=== PATIENT | male | born 1990 | race Caucasian/White ===

== ENCOUNTER 2019-05-07 12:39 | Emergency (ER) | payer BC, SELFPAY ==
[2019-05-07 12:48] VITALS: BP 140/74; PULSE 68; RESP 16; TEMP 37.3; O2SAT 99
--- NOTE | 2019-05-07 13:01 | ED.SKABFB ---
HPI - Skin/Abscess/Foreign Bdy General Chief complaint: Skin/Abscess/Foreign Body Stated complaint: poison henrietta or sumac Time Seen by Provider: 05/07/19 13:01 Source: patient and RN notes reviewed Mode of arrival: ambulatory Limitations: no limitations History of Present Illness HPI narrative: 28-year-old male who presents to [facility] care with complaints of poison henrietta or poison oak rash to his neck, inner wrists, ears, upper chest, spot on abdomen, and on dorsal aspect of his right foot which started about 6 days ago which has been progressively spreading. 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 Patient states that he has had posion henrietta rash in past and rash is red with pustular lesions with some weeping of clear fluid noted. Patient denies any difficulty with his breathing or any problems with swallowing. MD complaint: rash Onset (ago): day(s) (6) Location: neck, chest, LUE, RUE and R foot Severity: moderate Severity scale (1-10): 5 Quality: other (itching) Pain Consistency: constant Relieving factors: none Exacerbating factors: movement Context: other (exposure to poison henrietta/poison oak working on pipeline) Associated symptoms: itching Treatments prior to arrival: other (hydrocortisone cream) Related Data Allergies Allergy/AdvReac Type Severity Reaction Status Date / Time No Known Allergies Allergy Verified 05/07/19 13:05 Review of Systems Review of Systems: Narrative: CONSTITUTIONAL: Denies fever, chills, or sweats. EYES: Denies visual changes, redness, or discharge. ENT: Denies rhinorrhea, congestion, sore throat, or otalgia. CARDIOVASCULAR: Denies chest pain, palpitations, or edema. RESPIRATORY: Denies cough or dyspnea. GASTROINTESTINAL: Denies abdominal pain, nausea, vomiting, or diarrhea. GENITOURINARY: Denies dysuria or hematuria. SKIN: positive rash or itching numerous body areas for 6 days MUSCULOSKELETAL: Denies back pain, joint pain, or myalgia. NEUROLOGIC: Denies headache, numbness, or weakness. PSYCHIATRIC: Denies anxiety or depression. All systems reviewed & are unremarkable except as noted in HPI and below PMFSH Past Medical History Medical History (Updated 05/07/19 @ 13:25 by Geeta L. Lalo, [employer]) Hx of reduction of nasal fracture Surgical History Surgical History (Updated 05/07/19 @ 13:25 by Geeta May NP) [place] teeth extracted Social History Social History (Updated 05/07/19 @ 13:26 by Geeta May NP) Smoking status: Never smoker Alcohol intake: current Living arrangements: with roommate(s) Additional occupation/education comments: working on [employer] Gender identity (if verbalized by the patient): Male Comments At time of signature, agree with nursing past medical, social and family history. There is no relevant family history pertinent to the presenting complaint Exam Narrative: Exam Narrative: GENERAL: Well-appearing, well-nourished, and in no acute distress. HEAD: Normocephalic, atraumatic. EYES: PERRLA and EOMI. ENT: Nares clear, no rhinorrhea or epistaxis. Mucous membranes moist. NECK: Supple.no lymphadenopathy CHEST: Clear to auscultation. No respiratory distress.SAO2 99%on room air HEART: Regular rate and rhythm. No murmur heard. Normal peripheral pulses. ABDOMEN: Soft, non tender, nondistended, normal active bowel sounds. EXTREMITIES: Normal range of motion. No edema. SKIN: Warm, dry, red irritated pustular rash with some clear weeping,noted bilateral neck, ears, upper chest, bilateral forearms dorsal aspect of right foot. Is itchy. NEURO: No focal deficits. Alert and oriented x3. Course Vital Signs Vital signs: Vital Signs Temperature 37.3 C 05/07/19 12:48 Pulse Rate 68 05/07/19 12:48 Respiratory Rate 16 05/07/19 12:48 Blood Pressure 140/74 05/07/19 12:48 Pulse Oximetry 99 05/07/19 12:48 Temperature 37.3 C 05/07/19 12:48 Pulse Rate 68 05/07/19 12:48 Respiratory Ra
[2019-05-07] MEDS: methylPREDNISolone ACETATE 40 MG/ML VIAL 80 MG IM (13:18)
== END 2019-05-07 13:39 | disposition home or self-care (01) ==
PROVIDERS: Emergency Provider Registered Nurse
DX: L23.7 Allergic contact dermatitis due to plants, except food (principal)
CPT/HCPCS: 96372; 99203; G0463; J1030